=== PATIENT | female | born 1940 | race Caucasian/White ===

== ENCOUNTER → 2017-01-07 | Outpatient (CLI) | payer MEDICARE, OTHER ==
[~2017-01-07] MED LIST: ACTOPLUS MET 851 TAB PO; AVANDIA2 MG PO; B/P PILL PO; CALCIUM600 M1 PO; CALTRATE 600 +1 TA1 PO; GLIMEPIRIDE1 MG PO; JANUVIA50 MG PO; MECLIZINE25 MG PO; MOMETASONE FUROA0.1% TP; NASACORT A55 MCG/ACT; PRAVACHOL80 MG PO; TAMIFLU 75MG CA75 MG PO; TESSALON PERLE100 MG PO; VASERETIC 10 MG1 TAB PO; VITAMIN B12500 MCG PO; VITAMIN E 400400 IU PO; WARFARIN SOD5 MG PO; XANAX 0.25MG0.25 MG PO; ZANTAC 150150 MG PO; ZETIA10 MG PO; [UNRECOGNIZED DRUG - CODE] PO
--- NOTE | 2017-01-07 17:11 | RADIOLOGY REPORT PS360 ---
CHEST(2 VIEWS-NOT PORTABLE) HISTORY: PERSISTENT COUGH ORDERING PHYSICIAN: Wilmer Medellin MD PATIENT AGE: 76 years COMPARISON: 10/05/2014 FINDINGS: The cardiomediastinal silhouette and pulmonary vascularity are within normal limits. Minimal left basilar fibrotic changes are present. There is some increased density in the right hilum which may represent overlying vessels. This however is somewhat more prominent compared to the previous exam possibly related to the positioning. Consider follow-up exam to confirm stability. No lobar consolidation or collapse. There are degenerative changes in the thoracic spine. IMPRESSION: 1. Chronic changes in the left lung base. 2. Nodular density in the right suprahilar region which may be related to overlying vasculature. Follow-up recommended as a nodular lesion cannot be excluded.
== END ==
LOC: RAD 16:16
DX: R05 Cough (principal)

== ENCOUNTER 2017-04-06 07:18 | Day surgery (SDC) | payer MEDICARE, OTHER ==
[2017-04-06 07:53] LABS: HEMOGLOBIN 12.5 g/dL (12.2-16.2); LYMPH % 32.3 % (10-50.0)
[2017-04-06 07:59] LABS: BUN 24 mg/dL (7-18)
[2017-04-06 08:00] LABS: GFR (ESTIMATED) 54 ML/MIN (59-)
[2017-04-06 14:52] LABS: URINE BILIRUBIN - DIPSTICK NEGATIVE (NEG); URINE BLOOD TRACE-INTACT (NEG)
[2017-04-06 15:10] LABS: URINE SQUAMOUS CELLS OCC #/hpf (0-5)
--- NOTE | 2017-04-06 15:52 | RADIOLOGY REPORT PS360 ---
CT ABD PELVIS W/O CONTRAST COMPARISON: None HISTORY: Post cardiac catheterization with suspected active bleeding and/or hematoma at the puncture site right groin TECHNIQUE: Multiaxial scans obtained from hemidiaphragms to the pelvic floor and were performed without IV or oral contrast. Sagittal and coronal reformats were evaluated as well. FINDINGS: The lower lung keating are clear. There is marginalized cardiomegaly and there is coronary artery calcification noted. Tonic is distended with food particles but otherwise appears normal. The liver spleen pancreas and gallbladder appear grossly normal. The adrenal glands are normal. The kidneys are lower limits normal in size and show symmetrical function both showing small cortical cysts. There is no obstructive uropathy of either kidney. Small bowel is normal. There is moderate scattered stool throughout the colon. The striking finding is a large area of increased attenuation somewhat elliptical in shape in the subcutaneous tissues arising out of the right groin and extending superiorly and laterally by 8.7 x 13.0 cm consistent with an evolving hematoma apparently arising from the arterial puncture site. There is a [place] catheter at the base of urinary bladder contrast opacifying the urinary bladder and there is no evidence of trauma or leakage of the urinary bladder. The uterus appears small and atrophic and there is a water density mass adjacent to the small uterus measuring 6.9 x 6.1 x 6.1 cm likely resenting a right ovarian cyst. There is no retroperitoneal bleed and there is no free fluid in the pelvis. There are multilevel degenerative changes of lower thoracic and lumbar spine. IMPRESSION: Large mass of increased attenuation with irregular borders arising in the right groin and extending into the subcutaneous tissues of the right lower quadrant almost surely representing hematomas secondary to the arterial puncture, other nonacute findings as described.
[2017-04-06 19:20] VITALS: BP 143/69
[2017-04-06 20:20] VITALS: BP 135/55
[2017-04-06 21:00] VITALS: BP 134/50
[2017-04-06 22:00] VITALS: BP 118/45
[2017-04-06 22:32] VITALS: BP 118/45
[2017-04-06 23:00] VITALS: BP 129/53
[2017-04-07] VITALS: BP 125/50
[2017-04-07 02:00] VITALS: BP 135/49
[2017-04-07 04:00] VITALS: BP 134/46
[2017-04-07 06:00] VITALS: BP 148/56
--- NOTE | 2017-04-22 15:33 | RADIOLOGY REPORT PS360 ---
CARDIAC CATHETERIZATION DATE OF CATHETERIZATION:04/06/2017 3:11 PM PROCEDURES: 1. Left heart catheterization 2. Selective coronary angiogram 3. Left ventriculogram 4. Drug-eluting stent deployment to the proximal mid distal dominant right coronary artery INDICATION FOR TEST: 1. Angina pectoris class III and IV 2. High risk abnormal stress test 3. Abnormal EKG demonstrating dynamic EKG abnormalities 4. Coronary artery disease 5. 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 COMPLICATIONS: None Clinical history: 76-year-old morbidly obese patient with history of lung disease from chronic tobacco usage presented to the office with class III and IV angina pectoris and a high risk abnormal stress test. Prior to the heart catheter was discussed with or not patient would be a candidate for bypass surgery and she declined. I did agree with the higher risk nature of potential bypass surgery because of her multiple comorbidities. Was also decided if patient needed revascularization her only consideration would be stenting with no consideration for bypass surgery. ESTIMATED BLOOD LOSS: Less than 10 ml. TECHNIQUE: One percent lidocaine used to anesthetize the right anterior aspect of the wrist. The right radial artery was accessed via the Seldinger technique. A 6 [place] sheath was placed in the right radial artery. 2.5 mg of verapamil, 800 mcg of nitroglycerin and 5000 U Heparin were given through the arterial sheath. The Tig catheter was also used to perform left heart catheterization and left ventriculography. At the end of the diagnostic procedure it was decided to proceed with right groin access. Patient was having significant pain from the catheter torquing or her radial and brachial artery. Because of the chronic occlusion as well as patient's severe right arm pain it was decided to proceed with right groin access. 1% lidocaine was used to anesthetize the right groin in the right femoral artery was accessed via the Seldinger technique. A 6 [place] sheath was placed in the right femoral artery and a 3-DRC guide catheter was used to intubate the right coronary artery. The initial ACT was 239 seconds therefore an additional heparin was administered. A nursing notes for specifics A 1.5 x15 mm balloon was placed across the chronic occlusion and used to dilate. Multiple balloons were used to predilate throughout the right coronary artery. 2 3 mm x 38 mm resolute [place] stents were placed in the distal mid and proximal right coronary artery and deployed at 20 nadeen reducing the severe stenoses. An additional 3 mm x 18 mm stent was placed distally and deployed at 20 nadeen. 2 additional 3 mm x 18 mm resolute [place] stents were then deployed at 18 and 20 nadeen reducing the stenosis to 0% the end the procedure there is wide patency of the vessel which had improved to JERAMY-3 flow by the end of the procedure. Given the vessel was chronically occluded I presumed flow would be considered JERAMY 0. The closing ACT was 302 seconds. ANGIOGRAPHIC RESULTS: 1. The left main artery has a distal 50-60% stenosis 2. The left anterior descending artery has a proximal 50% followed by additional 70% hazy mid vessel stenosis. The first diagonal artery is a medium-size vessel and has proximal 90% stenosis. 3. The circumflex artery has an ostial calcified greater than 90% stenosis followed by a proximal 40% stenosis 4. The right coronary artery is a dominant vessel and has proximal 90% stenosis with a mid vessel 99% subtotal occlusion. The distal right coronary artery fills via left to right collaterals. At the end of the procedure the [place] right coronary artery was widely patent with stenoses no greater than 10% with excellent flow into the large posterior descending artery and posterior lateral ventricular branch 5. The FRANCIS ventriculogram reveals normal 65% 6. The left ventricular end-diastolic pressure 20 mmHg IMPRESSION: 1. Severe distal left main disease with severe three-vessel coronary artery disease as described above 2. Successful reconstruction of the dominant right coronary artery critical disease reduced to 0% with 5 drug-eluting stents 3. Persistent distal left main disease with persistent LAD disease and circumflex artery disease 4. Normal ejection fraction 5. Moderately elevated LVEDP PLAN: 1. Brilinta and aspirin 2. In 2 weeks patient will be brought back to [facility] and will undergo reconstruction of the left main artery with bifurcating stents into the LAD and circumflex artery. 3. LDL less than 55 4. Cardiac rehabilitation following staged procedure of the left main artery LAD and circumflex artery 5. Avoidance of tobacco products
== END 2017-04-07 08:29 | disposition home or self-care (01) ==
LOC: CATHLAB 07:18
PROVIDERS: Internal Medicine
PROC: B2111ZZ Fluoroscopy of Multiple Coronary Arteries using Low Osmolar Contrast (ICD-10-PCS; 2017-04-06)
PROC: B2151ZZ Fluoroscopy of Left Heart using Low Osmolar Contrast (ICD-10-PCS; 2017-04-06)
PROC: 027034Z Dilation of Coronary Artery, One Artery with Drug-eluting Intraluminal Device, Percutaneous Approach (ICD-10-PCS; 2017-04-06)
PROC: 4A023N7 Measurement of Cardiac Sampling and Pressure, Left Heart, Percutaneous Approach (ICD-10-PCS; principal; 2017-04-06 11:00)
DX: I25.119 Atherosclerotic heart disease of native coronary artery with unspecified angina pectoris (principal); I25.82 Chronic total occlusion of coronary artery; Z72.0 Tobacco use; R94.31 Abnormal electrocardiogram [ECG] [EKG]; R94.39 Abnormal result of other cardiovascular function study; E11.8 Type 2 diabetes mellitus with unspecified complications; I10 Essential (primary) hypertension; I50.30 Unspecified diastolic (congestive) heart failure; I73.9 Peripheral vascular disease, unspecified; I27.2 Other secondary pulmonary hypertension
CPT/HCPCS: C1725; C1760; C1769; C1876; J1644; Q9967

== ENCOUNTER → 2017-04-20 | Day surgery (SDC) | payer MEDICARE, OTHER ==
[2017-04-20] VITALS (17 sets, daily range): BP systolic 124–182; BP diastolic 54–78
[2017-04-20 08:10] LABS: LYMPH # 1.2 K/mm3 (0.7-4.5); LYMPH % 16.1 % (10-50.0)
[2017-04-20 08:14] LABS: BUN 23 mg/dL (7-18)
[2017-04-20 08:18] LABS: HEMOGLOBIN 10.2 g/dL (12.2-16.2)
[2017-04-20 08:19] LABS: GFR (ESTIMATED) 44 ML/MIN (59-)
--- NOTE | 2017-04-20 11:16 | RADIOLOGY REPORT PS360 ---
CARDIAC CATHETERIZATION DATE OF CATHETERIZATION:04/20/2017 9:51 AM PROCEDURES: 1. Selective coronary angiogram 2. Drug-eluting stent deployment to the ostial proximal left anterior descending artery 3. Drug-eluting stent deployment to the ostial proximal circumflex artery 4. Drug-eluting stent deployment to the proximal distal left main artery extending into the LAD INDICATION FOR TEST: 1. Coronary artery disease 2. Angina pectoris class IV 76-year-old morbidly obese patient with multiple medical problems who suffers from severe three-vessel coronary artery disease. Patient was not considered a surgical candidate due to her comorbidities and generalized ability. Discussion was made prior to the intervention that bypass surgery was not going to be an option and percutaneous revascularization was going to be performed. 2 weeks prior patient had reconstruction of the chronically occluded dominant right coronary artery. It was also discussed prior to that heart catheter that bypass surgery would not be offered to this lady. Excellent results were obtained 2 weeks ago from the chronically occluded dominant right coronary artery therefore today's procedure was a planned selective reconstruction of the distal left main artery and stenting of the ostial proximal LAD and ostial proximal circumflex artery. Patient was well aware of the risks and benefits of this procedure. Informed consent was obtained prior to the procedure. COMPLICATIONS: None ESTIMATED BLOOD LOSS: Less than 10 ml. TECHNIQUE: One percent lidocaine used to anesthetize the right anterior aspect of the wrist. The right radial artery was accessed via the Seldinger technique. A 6 [place] sheath was placed in the right radial artery. 2.5 mg of verapamil, 800 mcg of nitroglycerin and 5000 U Heparin were given through the arterial sheath. An [place] left guide catheter was placed in the left main artery. An additional 5000 units of heparin was administered intra-arterially after cannulation of the left main artery. An ACT was greater than 400 seconds. Patient had artery received her morning Brilinta. 2 wires were placed one in the LAD and the other in the circumflex artery. 3 mm x 12 mm balloon was used to predilate the ostial circumflex artery given its greater than 90% calcified stenosis. The balloon was taken at 22 nadeen on 2 separate occasions. A severe stenosis was reduced to 50%. A 3 mm x 30 mm resolute [place] stent was then placed in the proximal LAD and deployed at 20 nadeen. A 4 mm x 12 mm resolute stent was placed in the mid LAD extending into the ostium of the left anterior descending artery overlapping the first stent and then deployed at 14 nadeen. A 3.5 x 15 mm balloon was then placed in the proximal LAD extending into the ostium and then back into the left main artery and deployed at 20 nadeen. The BMW wire in the LAD was then carefully pullback into the distal left main artery making sure it remained within the stent and then used to cannulate the circumflex artery. A 2 mm x 12 mm balloon was used to open the struts into the circumflex artery and this was followed by a 3 mm x 12 mm balloon. A 3.5 x 15 mm resolute [place] stent was placed in the ostium of the circumflex artery extending back into the left main artery. Following this a 4 mm x 8 mm balloon was placed in the mid LAD and distal LAD and deployed at 24 nadeen. A guideline her was in placed into the distal left main artery and a 3.5 x 12 mm balloon was placed in the proximal ostial circumflex artery and deployed at 15 na[place]. With the guideline her in place a 3 mm x 12 mm resolute [place] stent was placed in the proximal circumflex artery overlapping the 3.5 mm stent and then deployed at 24 nadeen. Excellent angiographic results were obtained. A choice PT wire was in placed into the left anterior descending artery and a 2 mm x 12 mm balloon was placed in the distal left main extending into the LAD and deployed at 20 nadeen. This allowed a 3.5 x 12 mm balloon to be placed into the distal left main extending into the LAD and then deployed at 20 nadeen. Excellent angiographic results were obtained with JERAMY-3 flow down the left main LAD and circumflex artery with excellent distal runoff. Angiographic results were excellent with complete reduction of the severe disease to less than 10%. The ACT was measured at 338 seconds. The apparatus was removed however patient had severe spasm around the sheath therefore 2 aliquots of 800 mcg of intra-arterial nitroglycerin was administered in order to remove the sheath. The sheath was removed and good hemostasis was achieved using TR banding patient transferred the postop holding area in stable condition IMPRESSION: 1. Successful stenting of the proximal mid distal left main artery 2. Successful reconstruction of the distal left main bifurcation 3. Successful drug-eluting stenting to the ostial proximal LAD 4. Successful drug-eluting stenting to the ostial proximal circumflex artery PLAN: 1. Brilinta and aspirin 2. LDL less than 55 3. Cardiac rehabilitation 4. Avoidance of tobacco products 5. Risk factor modification
[2017-04-21] VITALS: BP 135/95
[2017-04-21 02:20] VITALS: BP 156/60
[2017-04-21 04:05] VITALS: BP 141/61
== END ==
LOC: CATHLAB 07:25
PROVIDERS: Internal Medicine
PROC: 027236Z Dilation of Coronary Artery, Three Arteries with Three Drug-eluting Intraluminal Devices, Percutaneous Approach (ICD-10-PCS; principal; 2017-04-20 07:30)
DX: I25.119 Atherosclerotic heart disease of native coronary artery with unspecified angina pectoris (principal); I10 Essential (primary) hypertension; Z72.0 Tobacco use; E11.9 Type 2 diabetes mellitus without complications; I50.30 Unspecified diastolic (congestive) heart failure; R09.89 Other specified symptoms and signs involving the circulatory and respiratory systems; I73.9 Peripheral vascular disease, unspecified; I27.2 Other secondary pulmonary hypertension; I25.82 Chronic total occlusion of coronary artery
CPT/HCPCS: C1725; C1769; C1876; J1644; Q9967

== ENCOUNTER 2017-04-30 17:18 | Emergency (ER) | payer MEDICARE, OTHER ==
[~2017-04-30] VITALS: Ht 162.6 cm; Wt 97.1 kg
[2017-04-30] MEDS ORDERED: POTASSIUM CHLO10 ME1 PO (17:43)
[2017-04-30] MEDS ORDERED: ALDACTONE 25MG25 MG NG (17:44)
[2017-04-30] MEDS ORDERED: ISOSORBIDE MONO30 MG PO (17:46)
[2017-04-30] MEDS ORDERED: FUROSEMIDE 40MG40 M1 PO (17:46)
[2017-04-30] MEDS ORDERED: JANUVIA100 MG PO (17:47)
[2017-04-30] MEDS ORDERED: LOSARTAN POTAS100 MG PO (17:48)
[2017-04-30] MEDS ORDERED: MONTELUKAST SOD10 MG PO (17:50)
[2017-04-30] MEDS ORDERED: MELOXICAM7.5 MG PO (17:50)
[2017-04-30] MEDS ORDERED: BRILINTA90 M1 PO (17:51)
[2017-04-30] MEDS ORDERED: ROPINIROLE HYD0.5 MG PO (17:52)
[2017-04-30] MEDS ORDERED: ZETIA10 MG PO (17:54)
[2017-04-30] MEDS ORDERED: ZYRTEC ALLERGY10 MG PO (17:58)
[2017-04-30 18:29] LABS: HEMOGLOBIN 10.3 g/dL (12.2-16.2); LYMPH # 1.3 K/mm3 (0.7-4.5); LYMPH % 19.9 % (10-50.0)
[2017-04-30 19:00] LABS: URINE BILIRUBIN - DIPSTICK NEGATIVE (NEG); URINE BLOOD NEGATIVE (NEG)
--- NOTE | 2017-04-30 19:46 | Emergency Room Report ---
History of Present Illness Time Seen by 1942 Presenting Problem in Triage Pt arrived:Walked Presenting Problem:pt has been weak and dizzy since waking up. pt. also c/o neck pain this neck pain. (pt has a hx of neck pain but this pain has been lasting all day ) Pt had card. 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 N Clinical Suspician of Infection? N Mental Status: 1 - Regular (Normal Baseline) Sepsis Risk:Low Sepsis Risk Have you (or family members/close friends) recently traveled outside the [place]? N If Yes, where/when: Have you had exposure to infectious disease within the past month? N TB? Other? Specify: Source patient, RN notes reviewed, family, old records Exam Limitations no limitations Comment pt with known card disease who had recent stents has felt weak and dizzy today but no chest pain or syncope or palpatations and no fever - Cardiac Chest Pain Chest pain indicative of cardiac No Timing/Duration this evening Severity moderate ALLERGIES Coded Allergies: Draper Pepper (Intermediate, I-ITCHING 04/30/17) Dried Fruit (Intermediate, I-ITCHING 04/30/17) Nuts (Food) (Intermediate, I-ITCHING 04/30/17) Penicillins (Intermediate, I-RASH 04/30/17) Sulfa (Sulfonamide Antibiotics) (Intermediate, I-RASH 04/30/17) onion (Intermediate, I-ITCHING 04/30/17) Home Medications Reported Medications Glimepiride 8 MG PO DAILY Pravastatin Sodium (Pravachol) 1 TAB PO DAILY Ranitidine Hcl (Zantac) 1 TAB PO BID Vitamin E (Vitamin E 400 UNITS) 1 TAB PO DAILY PIOGLITAZONE HCL/METFORMIN HCL (Actoplus Met 15 MG-850 MG Tab) 1 TAB PO BID Cyanocobalamin (Vitamin B12) 500 MCG PO DAILY CALCIUM CARBONATE/VITAMIN D3 (Caltrate 600 + D Tablet) 1 TAB PO BID Potassium Chloride 10 MEQ PO DAILY #60 Spironolactone (Aldactone) 25 MG NG DAILY #30 Furosemide 40 MG PO DAILY #30 Isosorbide Mononitrate (Isosorbide Mononitrate ER) 30 MG PO DAILY #30 Sitagliptin Phosphate (Januvia 100MG) 100 MG PO DAILY #30 Losartan Potassium (Losartan 100MG) 100 MG PO DAILY #30 Meloxicam (Meloxicam 7.5MG) 7.5 MG PO DAILY #30 Montelukast Sodium 10 MG PO DAILY #30 Ticagrelor (Brilinta) 90 MG PO BID #60 ROPINIROLE HCL (Ropinirole 0.5MG) 0.5 MG PO TID #30 Ezetimibe (Zetia) 10 MG PO DAILY Cetirizine Hcl (Zyrtec) 10 MG PO QPM History Medical History General CAD? No Angina: No CT: No Hypertension? Yes Hyperlipidemia? Yes CHF? No COPD? No Asthma? No Anemia? No Hernia? No Thyroid Problems? No Hypothyroidism? No CVA? Yes Seizures? No Diabetes? Yes Insulin Dependent: No Insulin Pump: No Home FSBS? Yes End Stage Renal Disease? No UTI? No Stones? No GB Disease: No Nephritic Syndrome? No Asplenia? No Hepatitis? No Sickle Cell Disease? No Arthritis? Yes Cataracts? No Glaucoma? No MRSA? No TB? No Cancer? Yes Site: SKIN More? No Immunization Hx DT/Tetanus NOT SURE Flu 2016-17FSN Pneumonia Received In Past Surgical Hx Previous Surgery?Y TUBAL LIGATION SKIN CANCER REMOVAL HEART STENTS X7 Family History Family Hx Diabetes Yes CAD Yes Hypertension Yes Hyperlipidemia No Cancer No TB No Social History Smoking Hx Smoker: Former Smoker Tobacco: No Packs/day 1 1/2 - 2 Packs Alcohol Alcohol: No Drugs none Review of Systems All Other Systems Reviewed and Negative Constitutional see HPI, denies fever, weakness Eyes denies drainage ENT denies: ear discharge, epistaxis. Respiratory denies cough, denies shortness of breath Cardiovascular denies chest pain, denies palpitations, denies syncope Gastrointestinal denies abdominal pain, denies diarrhea, denies vomiting Genitourinary denies: dysuria, frequency, hesitancy, hematuria. Musculoskeletal denies back pain, denies joint pain, denies joint swelling, denies neck pain Skin denies rash Psychiatric/Neurological see HPI, denies headache, denies seizure, weakness Physical Exam Vital Signs Vital Signs Date Time Temp Pulse Resp B/P Pulse O2 O2 Flow FiO2 Ox Delivery Rate 04/30 1859 97 16 134/60 97 04/30 182 104 140/40 04/30 182 102 160/40 04/30 1828 86 160/80 04/30 1818 86 16 100/40 97 04/30 1800 95 16 100/60 97 04/30 1732 98.4 85 16 95/44 96 - WBC >12,000 or <4,000 or 10% bands? 2 or more SIRS Criteria Met? B/P:134/60 MAP:61 Creatinine >2.0? UA output<0.5ml/kg/hr for 2 hrs? Platelet count >100,000? Lactate >2.0mmol/1? INR >1.2 or PTT > than 60 sec? Evidence of Organ Dysfunction? Provider documented clinical suspician of infection? N Sepsis Criteria Count: 0 Sepsis Risk: Low Sepsis Risk General Appearance no apparent distress Eye Exam - bilateral eye PERRL, bilateral eye EOMI Ear, Nose, Throat normal ENT inspection Neck non-tender Respiratory Status No: respiratory distress. Lung Sounds bilateral: lungs clear. 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 No Results/Orders Laboratory Tests 04/30/17 1950: POC Glucose 92 04/30/171913: POC Glucose Pending 04/30/171849: Urine Color YELLOW, Urine Appearance CLEAR, Urine pH 5.5, Ur Specific [place] <= 1.005, Urine Protein NEGATIVE, Urine Ketones NEGATIVE, Urine Blood NEGATIVE, Urine Nitrate NEGATIVE, Urine Bilirubin NEGATIVE, Urine Urobilinogen 0.2, Ur Leukocyte Esterase 1+ H, Urine RBC 3-5, Urine WBC OCC, Ur Squamous Epith Cells 3-5, Urine Bacteria TRACE, Urine Glucose NEGATIVE 04/30/171819: Creatine Kinase 64, CK-MB (CK-2) Rel Index 0.8, CK and CKMB Interp < 0.5, Troponin I 0.03 04/30/170: Sodium 141, Potassium 4.2, Chloride 103, Carbon Dioxide 28, BUN 22 H, Creatinine 1.6 H, Estimated Creat Clear 46 L, Estimated GFR (MDRD) 31 L, Glucose 64 L, Calcium 10.7 H, Total Bilirubin 0.5, AST 22, ALT 18, Alkaline Phosphatase 77, Total Protein 7.6, Albumin 3.6, Globulin 4.0 H, Albumin/ Globulin Ratio 0.9 L, PT 10.2, INR 0.94, APTT 26.6, WBC 6.8, RBC 3.50 L, Hgb 10.3 L, Hct 32.5 L, MCV 92.8, RDW 15.2, Plt Count 271, MPV 8.2, Gran % 69.2, Gran # 4.7, Lymphocytes % 19.9, Monocytes % 9.5 H, Eosinophils % 1.3, Basophils % 0.2, Lymphocytes # 1.3, Monocytes # 0.6, Eosinophils # 0.1, Basophils # 0.0, PUBS MCHC 31.8, MCH 29.5 Current Medication Orders Sig/Nacho Start time Last Medication Dose Route Stop Time Status Admin Sodium Chloride 10 ML PRN PRN 04/30 1815 AC IV 05/01 180 Sodium Chloride 1,000 ML .Q1H1M 04/30 1815 DC IV 04/30 1915 Sodium Chloride 10 ML PRN PRN 04/30 181 AC IV 05/01 180 Sodium Chloride 1,000 ML .STK-MED ONE 04/30 1804 DC IV Orders Procedure Date/time Status FINGERSTICK BLOOD SUGAR 04/30 1950 Complete FINGERSTICK BLOOD SUGAR 04/30 191 Active FSBS REQUEST BY [facility] 04/30 191 Active URINALYSIS/COMPLETE 04/30 1831 Complete 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 ST/Twave chgs, RBBB XRAY/CT/US XRAY/CT/US XRAY chest XR interpretation by reviewed by me Xray Results normal/NAD Departure Departure Time of Disposition 2014 Disposition DC Home or Self Care(routine) Clinical Impression Primary Impression: Weakness Secondary Impressions: Anemia Qualifiers: Anemia type: unspecified type Qualified Code: D64.9 - Anemia, unspecified RBBB Renal insufficiency Condition STABLE Patient Instructions DI for Fatigue Additional Instructions fluids and take meds and see pcp for follow up Discharge Counseling Counseled pt/family regarding diagnosis, test results, follow up needs ED Critical Care Critical Care No at 2017
--- NOTE | 2017-04-30 19:55 | RADIOLOGY REPORT PS360 ---
CHEST(2 VIEWS-NOT PORTABLE) HISTORY: WEAKNESS ORDERING PHYSICIAN: Tiara Sanderson MD PATIENT AGE: 76 years COMPARISON: 01/07/2017 FINDINGS: The cardiomediastinal silhouette and pulmonary vascularity are within normal limits. Coronary artery stent is present The lungs are clear without infiltrates, suspicious nodules, or pleural effusions. No acute bony abnormalities. Degenerative changes thoracic spine Chronic changes are present in the left lung base. IMPRESSION: No acute finding
[2017-04-30 20:21] VITALS: BP 135/63
[2017-05-01] MEDS ORDERED: CIPRO 500MG TA500 MG PO (18:47)
== END 2017-04-30 20:33 | disposition home or self-care (01) ==
LOC: ER 17:18
PROVIDERS: Emergency Medicine
DX: R53.1 Weakness (principal); D64.9 Anemia, unspecified; I10 Essential (primary) hypertension; E11.9 Type 2 diabetes mellitus without complications; Z87.891 Personal history of nicotine dependence; M54.2 Cervicalgia; Z86.73 Personal history of transient ischemic attack (TIA), and cerebral infarction without residual deficits

== ENCOUNTER 2017-05-01 16:48 | Emergency (ER) | payer MEDICARE, OTHER ==
[~2017-05-01] VITALS: Ht 162.6 cm; Wt 97.1 kg
[~2017-05-01 16:48] MED LIST changes: +ALDACTONE 25MG25 MG NG; +BRILINTA90 M1 PO; +FUROSEMIDE 40MG40 M1 PO; +ISOSORBIDE MONO30 MG PO; +JANUVIA100 MG PO; +LOSARTAN POTAS100 MG PO; +MELOXICAM7.5 MG PO; +MONTELUKAST SOD10 MG PO; +POTASSIUM CHLO10 ME1 PO; +ROPINIROLE HYD0.5 MG PO; +ZYRTEC ALLERGY10 MG PO
[2017-05-01 17:10] LABS: URINE BILIRUBIN - DIPSTICK NEGATIVE (NEG); URINE BLOOD TRACE (NEG)
--- NOTE | 2017-05-01 17:20 | [facility]gent [facility] Report ---
History of Present Issue Date/Time Seen by Provider 05/01/17 2086 Visit Reason Pt arrived:Wheelchair Presenting Problem: WEAKNESS BEGAN YESTERDAY, SEEN HERE LAST NIGHT, DENIES PAIN Location if Accident: Onset of symptoms date/time:/ or onset unknown for:MEDICAL HX UNKNOWN Have you (or family members/close friends) recently traveled outside the [place]? N If Yes, where/when: Have you had exposure to infectious disease within the past month? TB? Other? Specify: Source patient, RN notes reviewed, family Exam Limitations no limitations Comment Patient presents with weakness and dizziness. States that she had 3 stents placed on 04/12/17 and 4 more a week later on 04/20/17. Last night she was seen in the ER for weakness and fatigue and low blood pressure. She was given IV fluids and blood pressure improved. Cardiac workup was negative. She did have mild anemia. She also had small leukocytes on UA. Today, she is still just not feeling well. Checked her blood pressure at [facility] and it was still low. ALLERGIES Coded Allergies: [place] Pepper (Intermediate, I-ITCHING 04/30/17) Dried Fruit (Intermediate, I-ITCHING 04/30/17) Nuts (Food) (Intermediate, I-ITCHING 04/30/17) Penicillins (Intermediate, I-RASH 04/30/17) Sulfa (Sulfonamide Antibiotics) (Intermediate, I-RASH 04/30/17) onion (Intermediate, I-ITCHING 04/30/17) Home Medications Reported Medications Glimepiride 8 MG PO DAILY Pravastatin Sodium (Pravachol) 1 TAB PO DAILY Ranitidine Hcl (Zantac) 1 TAB PO BID Vitamin E (Vitamin E 400 UNITS) 1 TAB PO DAILY PIOGLITAZONE HCL/METFORMIN HCL (Actoplus Met 15 MG-850 MG Tab) 1 TAB PO BID Cyanocobalamin (Vitamin B12) 500 MCG PO DAILY CALCIUM CARBONATE/VITAMIN D3 (Caltrate 600 + D Tablet) 1 TAB PO BID Potassium Chloride 10 MEQ PO DAILY #60 Spironolactone (Aldactone) 25 MG NG DAILY #30 Furosemide 40 MG PO DAILY #30 Isosorbide Mononitrate (Isosorbide Mononitrate ER) 30 MG PO DAILY #30 Sitagliptin Phosphate (Januvia 100MG) 100 MG PO DAILY #30 Losartan Potassium (Losartan 100MG) 100 MG PO DAILY #30 Meloxicam (Meloxicam 7.5MG) 7.5 MG PO DAILY #30 Montelukast Sodium 10 MG PO DAILY #30 Ticagrelor (Brilinta) 90 MG PO BID #60 ROPINIROLE HCL (Ropinirole 0.5MG) 0.5 MG PO TID #30 Ezetimibe (Zetia) 10 MG PO DAILY Cetirizine Hcl (Zyrtec) 10 MG PO QPM History Medical History General CAD? No Angina: No [place]: No Hypertension? Yes Hyperlipidemia? Yes CHF? No COPD? No Asthma? No Anemia? No Hernia? No Thyroid Problems? No Hypothyroidism? No CVA? Yes Seizures? No Diabetes? Yes Insulin Dependent: No Insulin Pump: No Home FSBS? Yes UTI? No Stones? No GB Disease: No Nephritic Syndrome? No Asplenia? No Hepatitis? No Sickle Cell Disease? No Arthritis? Yes Cataracts? No Glaucoma? No MRSA? No TB? No Cancer? Yes Site: SKIN More? No Immunization HX DT/Tetanus NOT SURE Flu 2015- Flu Season Pneumonia Received In Past Surgical Hx Previous Surgery?Y TUBAL LIGATION SKIN CANCER REMOVAL HEART STENTS X7 Family History Family HX Diabetes Yes CAD Yes Hypertension Yes Hyperlipidemia No Cancer No TB No Social History Smoking Hx Smoker: Current Every Day Smoker Tobacco: Yes Type Cigarettes Packs/day 1 1/2 - 2 Packs Alcohol Alcohol: No Review of Systems All Other Systems Reviewed and Negative Constitutional malaise, weakness Respiratory denies shortness of breath Cardiovascular denies chest pain, denies palpitations, denies syncope Psychiatric/Neurological weakness Physical Exam Vital Signs Vital Signs Date Time Temp Pulse Resp B/P Pulse O2 O2 Flow FiO2 Ox Delivery Rate 05/01 1700 97.8 88 18 100/42 97 05/01 1651 97.8 88 18 100/42 97 General Appearance normal appearance, no apparent distress Ear, Nose, Throat hearing grossly normal, normal ENT inspection Respiratory Status No: respiratory distress, trachea midline, chest symmetrical. Lung Sounds bilateral: normal breath sounds, lungs clear. Cardiovascular regular rate/rhythm, systolic murmur Extremities non-tender, normal range of motion, normal inspection, normal capillary refill Rectal normal rectal tone Neurologic alert, normal exam, oriented x 3 Mental status normal mood/affect Medical Decision Making LABS/Meds/Orders Pt receiving controlled substance in ED? No Results/Orders Laboratory Tests 05/01/17 1800: Stool Occult Blood NEGATIVE 05/01/17 1731: WBC 5.8, RBC 3.38 L, Hgb 9.9 L, Hct 31.3 L, MCV 92.5, RDW 15.2, Plt Count 271 , MPV 8.4, Gran % 66.2, Gran # 3.9, Lymphocytes % 24.1, Monocytes % 8.1, Eosinophils % 1.2, Basophils % 0.3, Lymphocytes # 1.4, Monocytes # 0.5, Eosinophils # 0.1, Basophils # 0.0, PUBS MCHC 31.6 L, MCH 29.2 05/01/17 1703: Urine Color YELLOW, Urine Appearance Clear, Urine pH 5.0, Ur Specific [place] <= 1.005, Urine Protein NEGATIVE, Urine Ketones NEGATIVE, Urine Blood TRACE H, Urine Nitrate NEGATIVE, Urine Bilirubin NEGATIVE, Urine Urobilinogen 0.2, Ur Leukocyte Esterase MODERATE, Urine Glucose NEGATIVE Current Medication Orders Sig/Nacho Start time Last Medication Dose Route Stop Time Status Admin Levofloxacin 0 .STK-MED ONE 05/01 1816 DC .ROUTE Levofloxacin 500 MG ONCE ONE 05/01 1815 DC 05/01 PO 05/01 Orders Procedure Date/time Status STOOL OCCULT BLOOD 05/01 1841 Complete CULTURE, URINE 05/01 1722 Active CBC WITH AUTO DIFF 05/01 1720 Complete [facility] URINE DIPSTICK 05/01 1703 Complete Departure Departure Time of Disposition 1845 Disposition DC Home or Self Care(routine) Clinical Impression Primary Impression: UTI (urinary tract infection) Qualifiers: Urinary tract infection type: acute cystitis Hematuria presence: with hematuria Qualified Code: N30.01 - Acute cystitis with hematuria Secondary Impressions: Anemia affecting 10th Hypotension Qualifiers: Hypotension type: hypotension due to drug Qualified Code: I95.2 - Hypotension due to drugs Weakness Condition STABLE Referrals Lacie AVITIA,Wilmer hC MD, [place] Patient Instructions DI for Urinary Tract Infection (UTI) Additional Instructions Blood pressure 138/76 after drinking Gatorade. H&H stable. Hemoccult negative. Cut Losartan in 1/2 until f/u with Dr Medellin to recheck BP (50 mg). F/U with Dr Medellin and Dr Ch next week. Discharge Counseling Counseled pt/family regarding diagnosis, test results, medications/RX, home care, follow up needs Prescriptions Current Visit Scripts Ciprofloxacin HCl (Cipro 500MG TAB) 500 MG PO BID #10 TAB at 4920
[2017-05-01 17:42] LABS: HEMOGLOBIN 9.9 g/dL (12.2-16.2); LYMPH # 1.4 K/mm3 (0.7-4.5); LYMPH % 24.1 % (10-50.0)
[2017-05-01 18:44] LABS: STOOL OCCULT BLOOD NEGATIVE (NEG)
[2017-05-01] MEDS ORDERED: CIPRO 500MG TA500 MG PO (18:47)
[2017-05-01 18:52] VITALS: BP 138/76
== END 2017-05-01 18:59 | disposition home or self-care (01) ==
LOC: ER 16:48 → UTC 17:01
PROVIDERS: Emergency Medicine
DX: N30.01 Acute cystitis with hematuria (principal); I95.2 Hypotension due to drugs; Z79.899 Other long term (current) drug therapy; E11.9 Type 2 diabetes mellitus without complications; Z72.0 Tobacco use
CPT/HCPCS: G0328

== ENCOUNTER → 2017-05-07 | Outpatient (CLI) | payer MEDICARE, OTHER ==
[~2017-05-07] MED LIST changes: +CIPRO 500MG TA500 MG PO
[2017-05-07 16:05] LABS: BUN 28 mg/dL (7-18)
[2017-05-07 16:14] LABS: GFR (ESTIMATED) 24 ML/MIN (59-)
== END ==
LOC: LAB 15:03
PROVIDERS: Internal Medicine Cardiovascular Disease
DX: I25.10 Atherosclerotic heart disease of native coronary artery without angina pectoris (principal); I10 Essential (primary) hypertension; R60.9 Edema, unspecified; E78.5 Hyperlipidemia, unspecified; E11.9 Type 2 diabetes mellitus without complications

== ENCOUNTER → 2017-06-17 | Outpatient (CLI) | payer MEDICARE, OTHER ==
[2017-06-17 15:06] LABS: BUN 24 mg/dL (7-18)
[2017-06-17 15:25] LABS: GFR (ESTIMATED) 40 ML/MIN (59-)
== END ==
LOC: LAB 13:18
PROVIDERS: Internal Medicine Cardiovascular Disease
DX: I25.10 Atherosclerotic heart disease of native coronary artery without angina pectoris (principal); I11.9 Hypertensive heart disease without heart failure; E78.5 Hyperlipidemia, unspecified; E11.9 Type 2 diabetes mellitus without complications

== ENCOUNTER → 2017-07-16 | Outpatient (CLI) | payer MEDICARE, OTHER | LOC: RAD 09:25 | DX: R41.0 Disorientation, unspecified (principal) ==